=== PATIENT | female | born 1985 | race Caucasian/White ===

== ENCOUNTER 2016-07-17 18:33 | Inpatient (IN) | payer BC, OTHER ==
[2016-07-17] MEDS ORDERED: MORPHINE SULFATE 2 MG/ML SYRINGE ONE (19:23)
[2016-07-17] MEDS ORDERED: MORPHINE SULFATE 4 MG/ML SYRINGE ONE (19:23)
[2016-07-17] MEDS ORDERED: LACTATED RINGERS 1,000 ML ONE (19:23)
[2016-07-17] MEDS ORDERED: PROCHLORPERAZINE 5 MG/ML 2 ML VIAL ONE (19:32)
[2016-07-17 19:51] LABS: ABSOLUTE NEUTROPHIL COUNT 15.7 K/mm3 (1.8-7.7); BASO # 0.1 K/mm3 (0.0-0.2); BASO % 0.3 % (0.2-1.0); EOS % 0.1 % (0.9-2.9); HEMATOCRIT 34.8 % (37.0-47.0); HEMOGLOBIN 11.8 gm/l (12.0-16.0); IMM NEUT # 0.1 K/mm3 (0-0.2); IMM NEUT% 0.5 % (0-1); INR 0.94; LYMPH # 1.3 (1.0-4.8); LYMPH % 7.2 % (15-45); MEAN CORPUSCULAR HEMOGLOBIN 33.2 pg (27.0-31.0); MEAN CORPUSCULAR HGB CONC 33.9 g/dl (33.0-37.0); MEAN PLATELET VOLUME 10.3 fl (7.4-10.4); MONO # 0.6 (0.0-0.8); MONO % 3.3 % (4-12); NEUT % 88.6 % (43-75); PLATELET COUNT 314 K/mm3 (130-400); PROTHROMBIN TIME 9.9 SECONDS (9.3-11.4); RED CELL DISTRIBUTION WIDTH 12.3 % (11.5-14.5)
[2016-07-17 19:53] LABS: ALBUMIN 3.3 gm/dL (3.5-5.7); CALCIUM 9.2 mg/dL (8.6-10.3)
--- NOTE | 2016-07-17 20:55 | US ---
Name: MEDARDO CLAYTON Exam: Limited obstetrical ultrasound Comparison: None Clinical history: Intrauterine gestation approximately 19 weeks 4 days. Intermittent bleeding and pain. Findings: There is a single living intrauterine gestation in a breech presentation. Heart rate is 189 bpm. The cervix is quite shortened at 8 mm. Oligohydramnios is identified with a four-quadrant index of under 1 cm. There is a fundal placenta without current evidence for abruption. Impression: 1. Single living intrauterine gestation in breech position 2. Oligohydramnios. 4 quadrant index is under 1 cm 3. Very short cervix at 8 mm 4. No current evidence for abruption of the fundal placenta Note: Findings were discussed with Dr. Miriam Silva at 2051 hours .
[2016-07-17 21:24] LABS: URINE BILIRUBIN NEGATIVE (NEGATIVE); URINE BLOOD 4+ (NEGATIVE); URINE GLUCOSE (UA) NEGATIVE (NEGATIVE); URINE LEUKOCYTE ESTERASE 1+ (NEGATIVE); URINE NITRITE NEGATIVE (NEGATIVE); URINE PROTEIN 1+ (NEGATIVE); URINE UROBILINOGEN NORMAL (0-1 mg/dl)
[2016-07-17 21:50] LABS: URINE APPEARANCE CLOUDY; URINE COLOR DARK YELLOW
[2016-07-17 21:51] LABS: URINE BACTERIA RARE; URINE EPITHELIAL CELLS 0-2 /hpf; URINE RBC >100 /hpf
[2016-07-17] MEDS ORDERED: BLISTEX LIPSTICK 1 EACH TP PRN (22:55)
[2016-07-17] MEDS ORDERED: MAGNESIUM HYDROXIDE/AL HYDROX 30 ML UDCUP PO PRN (22:55)
[2016-07-17] MEDS ORDERED: MAG HYDROX/AL HYDROX/SIMETH 30 ML UDCUP PO PRN (22:55)
[2016-07-17] MEDS ORDERED: HYDROMORPHONE HCL 1 MG/ML SYRINGE IV PRN (22:55)
[2016-07-17] MEDS ORDERED: DOCUSATE SODIUM 100 MG CAPSULE PO PRN (22:55)
[2016-07-17] MEDS ORDERED: MENTHOL/CETYLPYRD 1 EACH LOZENGE PO PRN (22:55)
[2016-07-17] MEDS ORDERED: METHYLERGONOVINE MALEATE 0.2 MG/ML 1ML AMP ONE (22:56)
[2016-07-17] MEDS ORDERED: PUMP TUBING ONE (23:05)
[2016-07-17] MEDS: D5LR 1,000 ML IV SCH (23:14)
[2016-07-17] MEDS: PIPERACILLIN-TAZO PREMIX BAG 3.375 G in Premix (D5W) 50 ml 1 EACH IV SCH (23:43)
[2016-07-18] MEDS: D5LR 1,000 ML IV SCH ×3 (06:24→23:23)
[2016-07-18 07:18] LABS: HEMATOCRIT 28.6 % (37.0-47.0); HEMOGLOBIN 9.7 gm/l (12.0-16.0); MEAN CELL VOLUME 96.9 fl (81.0-99.0); MEAN CORPUSCULAR HEMOGLOBIN 32.9 pg (27.0-31.0); MEAN CORPUSCULAR HGB CONC 33.9 g/dl (33.0-37.0); RED CELL DISTRIBUTION WIDTH 12.4 % (11.5-14.5)
[2016-07-18] MEDS: PIPERACILLIN-TAZO PREMIX BAG 3.375 G in Premix (D5W) 50 ml 1 EACH IV SCH ×3 (07:36→23:52)
--- NOTE | 2016-07-18 09:53 | HP ---
Shy Reddy [id number] DATE OF ADMISSION: 07/17/2016 ADMISSION DIAGNOSES: 1. Nineteen weeks . 2. Oligohydramnios. HISTORY AND PHYSICAL: The patient is a 31-year-old 3, para 1-0-1-1 with estimated delivery date of 12/07/2016. The patient presents at 19 weeks plus 4 days to the emergency room with complaints of vaginal bleeding. The patient had initiated care with [facility] and was seen there for two visits. The patient states that she had been having vaginal bleeding since the first trimester. Subsequently, patient transferred to Dr. Yanez at 17-1/2 weeks. At that time, patient was given a prescription for Metrogel for bacterial vaginosis. The patient subsequently continued to have vaginal bleeding on and off as well as pelvic cramping which increased since this week and last evening. The patient came to the emergency room and ultrasound was performed, this showed a single living intrauterine gestation in breech presentation. The heart rate was 189. The cervix was 8 mm and there was oligohydramnios with amniotic fluid of under 1 cm in four quadrants. There was a fundal placenta without any evidence for abruption. The patient has had gonorrhea and Chlamydia screening approximately one week ago which was negative. She had a Pap smear that was also negative. Of note, she is RH negative and had an early Rhogam shot due to vaginal bleeding. PAST OBSTETRICAL HISTORY: Patient has had a delivery for failure to dilate and distress in 2010. This was followed by a 13 week spontaneous in 2016. There was no dilation and curettage needed. PAST MEDICAL HISTORY: Negative. PAST SURGICAL HISTORY: Otherwise negative. ALLERGIES: No known drug allergies. PHYSICAL EXAMINATION: GENERAL: The patient is alert and appropriate. The patient will have moderate distress intermittently with intermittent abdominal pain. HEART: Regular rate and rhythm. LUNGS: Clear to auscultation bilaterally. ABDOMEN: Gravid and consistent with 19 week gestation. The abdomen is nondistended. The uterus is mildly tender with no rebound or guarding. PELVIC: Cervix is closed. There was some mild vaginal bleeding that also appeared intermittent. EXTREMITIES: Normal. ASSESSMENT AND PLAN: This is a 31-year-old 3, para 1 at 19 weeks of gestation with oligohydramnios. Differential diagnoses include and premature rupture of membranes, intrauterine infection or malformation or placental abruption. The patient states that she has been afebrile, however, with intermittent low grade temperatures of 99 as well as leukocytosis upon admission of 17.7. The patient's hemoglobin is 11.8 and she is stable at this time. We will admit the patient for observation and start Zosyn for antibiotics for treatment of possible intrauterine infection. The patient will also be started on Dilaudid for pain control. I have discussed the plan and prognosis with the patient with regards to early second trimester oligohydramnios. Overall prognosis is poor. The patient will be observed at this time and we will watch for whether she will start to dilate. JOB: [id number]
[2016-07-18] MEDS: ACETAMINOPHEN 325 MG TABLET PO PRN ×2 (14:50→21:12)
[2016-07-18 15:27] VITALS: BMI 27.4
--- NOTE | 2016-07-18 17:17 | PDOC36 ---
Provider Note Note: ob note: dr ackerman at [facility] was consulted regarding patient's status. she suggested ultrasound to be performed at [facility] and mfm consult at time of ultrasound. i discussed this with patient and partner. detailed discussion on oligohydramnios findings and shortened cervix on ultrasound at [facility]. risk of miscarriage discussed, possible genetic factors discussed, possible history of premature rupture of membranes discussed (patient does not give any history of prom), severe prematurity and sequelae discussed should patient carry to 23-24 weeks, neurological sequelae, lung, cardiac and infection sequelae discussed in general terms, that i could not offer a more detailed outcome as outcomes vary from patient to patient, but mfm consult tomorrow could provide more details. midtrimester still likely, but patient having less bleeding with bed rest. plan: start regular diet, continue bed rest, cancel ultrasound, but keep scheduled ultrasound and mfm consult at time of ultrasound at [facility] with mfm, dr. radha ackerman, continue iv fluids and antibiotics. above discussion lasted over 20 minutes, with patient and partner present. all questions were addressed.
--- NOTE | 2016-07-18 17:17 | PDOC36 ---
Provider Note Note: ob note: patient admitted by dr xiong last evening with history of vaginal bleeding and cramps with intrauterine at 19 weeks. ultrasound showed oligohydramnios, positive cardiac activity, no evidence of abruptio placentae, and shortened cervix. s-comfortable this morning, minimal cramps, bleeding has almost stopped o-vital signs stable, afebrile a- female, no acute distress, abdomen benign, uterine fundus at 19 weeks and nontender, minimal dark brown vaginal discharge on pad p-continue antibiotics, bed rest but may use bathroom, anatomy ultrasound for . i discussed ultrasound findings with patient and risk of miscarriage because of shortened cervix and oligohydramnios. should advance to 23- 24 weeks, i discussed consultation and transfer to maternal medicine practice and/or [facility] or [facility] in [place] should premature onset of labor occur.
[2016-07-19] MEDS: ONDANSETRON 4 MG/2ML 2 ML VIAL IV PRN ×2 (07:15→11:49)
[2016-07-19] MEDS: PIPERACILLIN-TAZO PREMIX BAG 3.375 G in Premix (D5W) 50 ml 1 EACH IV SCH ×2 (07:15→15:29)
[2016-07-19] MEDS: D5LR 1,000 ML IV SCH (07:22)
--- NOTE | 2016-07-19 10:03 | PDOC36 ---
Provider Note Note: ob note: patient had onset of contractions early this morning associated with passage of watery blood approximately 20cc seen in bathroom. following this, umbilical cord and foot noted at vaginal opening, with parts noted in vagina. gentle traction performed on foot and leg to attempt delivery of fetus, but i was unable to deliver fetus. patient having regular uterine contractions, no active bleeding. plan is for nonintervention to allow fetus and placenta to deliver spontaneously. discussed sending fetus and placenta for genetic studies and pathology, which patient and partner would like done, once the fetus delivers. patient requesting clergy after delivery. imp: midtrimester in progress plan: as above
--- NOTE | 2016-07-19 10:19 | PDOC36 ---
Provider Note Note: ob note: body of fetus delivered past vaginal opening. will await spontaneous delivery of entire fetus and placenta. no active bleeding.
[2016-07-19] MEDS ORDERED: OXYTOCIN IN LR 500 ML IV PRN (10:39)
--- NOTE | 2016-07-19 10:42 | PDOC36 ---
Provider Note Note: ob note: patient delivered fetus intact, well formed male fetus. cord attached. pitocin ordered for management of delivery of placenta.
[2016-07-19] MEDS ORDERED: PUMP TUBING ONE ×2 (10:44→23:49)
--- NOTE | 2016-07-19 11:45 | PDOC36 ---
Provider Note Note: ob note: placenta undelivered. will observe over one more hour, and if undelivered, then removal under anesthesia, possible d&c. patient stable, no active bleeding, no fever. discussed options with patient and she is comfortable with waiting another hour and possibly avoiding d&c.
--- NOTE | 2016-07-19 12:42 | PDOC36 ---
Provider Note Note: ob note: patient had large gush of blood and formed blood clot 6cm. placenta still retained. discussed d&c, possible suction d&c and will proceed since it is over two hours since delivery of fetus. risks, reasons, complications, alternatives discussed, all questions addressed in simple terms. lungs clear, heart rsr, no murmur. informed consent signed. imp: retained placenta plan: as above.
[2016-07-19] MEDS ORDERED: LIDOCAINE 2% (PRES FREE) 5 ML VIAL ONE (12:49)
[2016-07-19] MEDS ORDERED: METOCLOPRAMIDE HCL 5 MG/ML 2ML VIAL ONE (12:49)
[2016-07-19] MEDS ORDERED: DEXAMETHASONE SOD PHOS 4 MG/1 ML VIAL ONE (12:49)
[2016-07-19] MEDS ORDERED: PROPOFOL 20 ML IV ONE (12:49)
[2016-07-19] MEDS ORDERED: MIDAZOLAM HCL 1 MG/ML 2ML VIAL ONE (12:49)
[2016-07-19] MEDS ORDERED: ONDANSETRON 4 MG/2ML 2 ML VIAL ONE (12:49)
[2016-07-19] MEDS ORDERED: SUCCINYLCHOLINE CHL 20 MG/ML DOSE ONE (12:49)
[2016-07-19] MEDS ORDERED: FENTANYL 100 MCG/2 ML VIAL ONE (12:49)
[2016-07-19] MEDS ORDERED: FENTANYL 100 MCG/2 ML VIAL IV PRN (13:42)
[2016-07-19] MEDS ORDERED: HYDROMORPHONE HCL 1 MG/ML SYRINGE IV PRN (13:42)
[2016-07-19] MEDS ORDERED: ATROPINE SULFATE 0.4 MG/1 ML VIAL IV PRN (13:42)
[2016-07-19] MEDS ORDERED: KETOROLAC TROMETHAMINE 30 MG/ML 1 ML VIAL IV ONE (13:42)
[2016-07-19] MEDS ORDERED: PROMETHAZINE HCL 25 MG/ML VIAL IM PRN (13:42)
[2016-07-19] MEDS ORDERED: ONDANSETRON 4 MG/2ML 2 ML VIAL IV PRN (13:42)
[2016-07-19] MEDS ORDERED: NALOXONE HCL 0.4 MG/ML VIAL IV PRN (13:42)
[2016-07-19] MEDS ORDERED: LACTATED RINGERS 1,000 ML IV SCH ×2 (13:45→14:45)
[2016-07-19] MEDS ORDERED: MAG HYDROX/AL HYDROX/SIMETH 30 ML UDCUP PO PRN (14:40)
[2016-07-19] MEDS ORDERED: MAGNESIUM HYDROXIDE/AL HYDROX 30 ML UDCUP PO PRN (14:40)
[2016-07-19] MEDS ORDERED: ACETAMINOPHEN 325 MG TABLET PO PRN (14:40)
[2016-07-19] MEDS ORDERED: MENTHOL/CETYLPYRD 1 EACH LOZENGE PO PRN (14:40)
[2016-07-19] MEDS ORDERED: BLISTEX LIPSTICK 1 EACH TP PRN (14:40)
[2016-07-19] MEDS ORDERED: OXYCODONE/ACETAMINOPHEN 5/325 MG TABLET PO PRN (14:40)
[2016-07-19] MEDS ORDERED: DOCUSATE SODIUM 100 MG CAPSULE PO PRN (14:40)
[2016-07-19] MEDS ORDERED: RHOGAM 300 MCG SYRINGE IM ONE (14:45)
[2016-07-19] MEDS ORDERED: PROMETHAZINE HCL 25 MG/ML VIAL ONE (14:46)
[2016-07-19 15:51] LABS: CHLAMYDIA BD Negative (Negative); N.GONORRHOEAE BD Negative (Negative); SOURCE Urine (())
[2016-07-19] MEDS: IBUPROFEN 800 MG TABLET PO SCH ×2 (16:34→22:24)
[2016-07-19 16:46] LABS: HEMATOCRIT 25.4 % (37.0-47.0); HEMOGLOBIN 8.7 gm/l (12.0-16.0)
--- NOTE | 2016-07-19 16:58 | PDOC36 ---
Provider Note Note: post op note: patient resting comfortably. no complaints. uterine fundus firm 12 weeks size, nontender. no bleeding noted on vaginal/uterine packing at vaginal opening. hb 8.7. imp: stable post op Plan: remove packing tomorrow.
[2016-07-19] MEDS: METHYLERGONOVINE MALEATE 0.2 MG TABLET PO SCH ×2 (17:34→21:06)
[2016-07-19] MEDS ORDERED: RHOGAM 300 MCG SYRINGE IV ONE (19:30)
[2016-07-19] MEDS ORDERED: SODIUM CHLORIDE 0.9% 1,000 ML ONE (23:50)
[2016-07-20] MEDS: PIPERACILLIN-TAZO PREMIX BAG 3.375 G in Premix (D5W) 50 ml 1 EACH IV SCH ×3 (00:34→16:31)
[2016-07-20] MEDS: IBUPROFEN 800 MG TABLET PO SCH (04:38)
[2016-07-20 07:05] LABS: HEMOGLOBIN 6.6 gm/l (12.0-16.0)
[2016-07-20 07:08] LABS: HEMATOCRIT 19.3 % (37.0-47.0)
[2016-07-20] MEDS: METHYLERGONOVINE MALEATE 0.2 MG TABLET PO SCH ×2 (07:27→14:57)
[2016-07-20] MEDS ORDERED: BLOOD Y PLUMSET W/CASSETTE ONE (08:19)
[2016-07-20] MEDS ORDERED: SODIUM CHLORIDE 0.9% 0 ML ONE (08:19)
[2016-07-20] MEDS ORDERED: IV START KIT ONE ×2 (11:02→16:28)
[2016-07-20] MEDS ORDERED: SODIUM CHLORIDE 0.9% FLUSH 10 ML ONE (11:02)
--- NOTE | 2016-07-20 12:09 | OP ---
ELAINE CLAYTON [id number] DATE OF : 1985 NAME OF OPERATION: UTERINE CURETTAGE, SUCTION CURETTAGE AND UTERINE PACKING. PREOPERATIVE DIAGNOSIS: Retained placenta following a mid-trimester . POSTOPERATIVE DIAGNOSIS: Retained placenta and placenta accreta. OPERAATOR: Dr. Valentin Yanez ANESTHESIA: Bertram Levine CRNA, general anesthesia. DESCRIPTION OF PROCEDURE: With the patient under general anesthesia, she was receiving IV Pitocin at the onset of the procedure. After a time-out was performed, the local area was prepared with betadine and draped in the usual manner and the bladder was drained of 20 mL of clear yellow urine. Exam under anesthesia revealed the external genitalia healthy, but covered with blood. The umbilical cord was dangling from the opening of the vagina. The vagina had approximately 100 mL of blood and clots, which were evacuated, and the cervix was dilated 2 cm. The uterus at the onset of the operation was 16 week size and the adnexa were negative. PROCEDURE: The umbilical cord was cut to remove the plastic cord clamp. Next, the cord was grasped with a ring forceps, hoping to remove the placenta intact this way, however, that could not be accomplished and the cord tore. Following this, a duckbill speculum was inserted into the vagina gently. The anterior lip of the cervix was grasped with a ring forceps. The uterus was sounded to 10 cm, and at the onset of the operation the uterus was 16 week size. Suction curettage was performed using a straight #12 suction curette, removing approximately 100 mL of blood and small pieces of placental tissue. Instrument curettage was performed. There was a gritty sensation over the anterior portion of the uterus, however, posteriorly it felt to be smooth, and suction curettage was repeated, however, just blood and minimal pieces of placental material were removed, which were inspected in the specimen. After this, a large ring forceps was inserted into the uterus gently and the placenta was removed piecemeal. It appeared to be very adherent. Finally, one large intact piece of placenta did come out, approximately 8 cm x 8 cm in greatest dimensions, and then additional pieces of placental material were removed after the larger piece was removed. A second large piece was removed approximately 3 cm in diameter. Sharp curettage was next performed and there was a gritty sensation over the posterior portion of the uterus as well, and then following this the suction curettage was again performed, with no additional tissue removed. The uterus was massaged vigorously because the patient was actively bleeding, and she was also given methergine at this time. The vagina was packed with 4 x 4's and approximately five minutes time elapsed before removing them, and there was just minimal trickling of blood at this point. Because of this, I decided to pack the uterus with 1 inch iodoform gauze. A portion of the iodoform packing was placed in the uterus and in the cervix, and the rest remaining in the vagina. This will be removed either later today or tomorrow morning. All the vaginal instruments were removed, and with the exception of the minimal trickling of blood, there was no active bleeding noted. After the procedure the uterus was ten week size, firm and anteverted. At this time the operation was terminated after all the sponges were reported as correct and all the instruments were accounted for. The estimated blood loss of the procedure was 500 mL. The patient tolerated the procedure well and was returned to the recovery room in stable condition, with the uterine packing in place. FINAL DIAGNOSIS: Retained placenta and placenta accreta.
--- NOTE | 2016-07-20 12:56 | PDOC39B ---
Hospital Course: ADMIT DATE: 07/17/16 DISCHARGE DATE: 07/20/16 ADMISSION DIAGNOSES: intrauterine at 19 weeks, oligohydramnios, vaginal bleeding, cervical effacement PROCEDURES: antibiotic therapy, bed rest, delivery of stillborn fetus, dilatation and curettage, suction curettage, uterine packing HISTORY OF PRESENT ILLNESS: 31 year old [facility] at 19 weeks gestation presenting with vaginal bleeding, uterine cramps and oligohydramnios on ultrasound HOSPITAL COURSE: The patient went into premature labor and delivered an intact stillborn fetus on 07/19/16, followed by a retained placenta, placenta accreta requiring removal under anesthesia by uterine curettage, suction curettage, then uterine packing and tolerated the procedure well. On post operative day one the packing was removed. She received 2 units packed cells for post operative anemia. By day of discharge the patient is ambulating, eating, voiding, and passing flatus without difficulty. Pain is controlled and lochia is appropriate. - Physical Exam Vital Signs: Temp Pulse Resp BP Pulse Ox 98.4 F 90 18 109/60 98 07/20/16 12:41 07/20/16 12:41 07/20/16 12:41 07/20/16 12:41 07/20/16 12:41 General: Afebrile, No Acute Distress Psych/Mental Status: Mood/Affect Appropriate, Judgment/Insight Intact Lungs: Clear to Auscultation Bilaterally, Normal Air Movement Fundus: Firm, Midline, Other (nontender and 10 weeks size) Genitourinary: Normal Female Genitalia, Other (vaginal and uterine packing ( iodoform) removed intact. no excessive bleeding noted at time of removal) Lochia: Light Extremities: No Tenderness Other Findings: patient receiving 2 units packed cells for post operative anemia secondary to acute blood loss - Discharge Diagnosis (1) Second trimester Status: Resolved (2) Retained placenta Status: Resolved (3) Placenta accreta in second trimester Status: Resolved (4) Postoperative anemia due to acute blood loss Status: Resolved (5) Oligohydramnios in second trimester Status: Acute (6) Hemorrhage, antepartum, second trimester Status: Inactive (7) Cervical abnormality in , delivered with condition Status: Inactive - Discharge Plan Condition: Stable Disposition: Home
[2016-07-20] MEDS ORDERED: LACTATED RINGERS 1,000 ML ONE (16:28)
[2016-07-20] MEDS ORDERED: PUMP TUBING ONE (16:28)
[2016-07-20 16:41] LABS: ABSOLUTE NEUTROPHIL COUNT 4.5 K/mm3 (1.8-7.7); BASO # 0.1 K/mm3 (0.0-0.2); BASO % 0.7 % (0.2-1.0); EOS # 0.1 (0.0-0.5); HEMATOCRIT 26.5 % (37.0-47.0); HEMOGLOBIN 9.1 gm/l (12.0-16.0); IMM NEUT% 0.6 % (0-1); LYMPH # 2.2 (1.0-4.8); LYMPH % 30.1 % (15-45); MEAN CELL VOLUME 93.6 fl (81.0-99.0); MEAN CORPUSCULAR HEMOGLOBIN 32.2 pg (27.0-31.0); MEAN CORPUSCULAR HGB CONC 34.3 g/dl (33.0-37.0); MEAN PLATELET VOLUME 10.1 fl (7.4-10.4); MONO # 0.3 (0.0-0.8); MONO % 4.5 % (4-12); NEUT % 63.1 % (43-75); PLATELET COUNT 232 K/mm3 (130-400); RED CELL DISTRIBUTION WIDTH 14.2 % (11.5-14.5)
[2016-07-20 17:09] VITALS: BP 111/55
--- NOTE | 2016-07-24 16:00 | SURGPATH ---
[facility] [address] [place] [address] Patient Name: ELAINE CLAYTON MR#: [id number] : 1985 Gender: F Specimen #: [id number] Collected: 07/19/2016 Received: 07/22/2016 Reported: 07/23/2016 Submitting Phys: EMI BUI I Copy To Phys: [facility] Addendum Present Clinical History / Pre-Operative Diagnosis: 19.5 week demise Specimen Source / Surgical Procedure Performed: male fetus Interpretation: 1. FETUS, DELIVERY: - MALE FETUS, 293 G, FOOT LENGTH 3.3 CM,CROWN TO RUMP LENGTH 16.5 CM, CROWN TO HEEL LENGTH 23 CM, CONSISTENT WITH GESTATIONAL AGE OF 19-20 WEEKS - THREE VESSEL UMBILICAL CORD 2. PLACENTA, DELIVERY: - FRAGMENTED PLACENTA - MEMBRANES WITH ACUTE INFLAMMATION -TROPHOBLASTIC MATURATION CONSISTENT WITH THAT OF THE SECOND TRIMESTER - SEE COMMENT Comment: The inflammation in the membranes may be secondary to the demise. Clincal correlation is recommended. tissue was sent for cytogenetic testing, with a supplemental report to follow. Electronically Signed Out Adela Cullen M.D. Addendum Date Reported: 08/14/2016 Signed Out Addendum Diagnosis CASE SENT FOR ADDITIONAL TESTING CHROMOSOME ANALYSIS: 46,XY NORMAL MALE KARYOTYPE Performed by: [employer] [place] [address] Please see complete report under separate cover. Complete report on file. slc08/14/2016 Electronically Signed Out Nneka Garcia M.D. Gross Description: The specimen is received fresh labeled with the patient's name. The specimen consists of a 293 g male fetus with an attached 13 cm length of umbilical cord. The fetus is 16.5 cm from crown to rump, 23 cm from crown to heel. The umbilical cord is not coiled and appears to have three vessels. The skin is translucent pink-red. The facial features appear normal. The nares are patent. The mouth is normal. The eyes are closed. The ears are normally set. The hands and fingers are normal. The external male genitalia is normal. The feet and toes are normal. The foot length is 3.3 cm consistent with a gestational age of 19-20 weeks. The internal organs appear normally sized and normally situated. The liver is 19 g. The lobulated kidneys are 2.5 g. The 2.3 g heart appears normal. The testes are in a pelvic cavity. Bilateral tissue from the heels was taken for cytogenetic testing. 1A umbilical cord, liver, lung, heart, kidney, testis 2. The specimen is received in formalin labeled with the patient's name and "placenta". The specimen consists of a 290 g, 15 x 15 x 5 cm aggregate of placental fragments and clotted blood. There is a torn 15 cm umbilical cord segment (without coiling with three vessels). Placental orientation cannot be determined. There is abundant attached and detached clotted blood. Membranes are difficult to identify. 2A-D. rental representative [place], [place] Microscopic Description: Part 1: Sections of the kidney, lung, heart and liver are examined. 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 No viral cytopathic effect is seen. No significant pathologic changes are seen. The umbilical cord shows three vessels without funisitis. Part 2: Sections of membranes show acute inflammation within the membranes. No acute villitis is seen. Hemorrhage is present. 1: 53050 2: 75997 O36.4XX0 O43.92
== END 2016-07-20 17:37 | disposition home or self-care (01) | DRG 770 ==
LOC: ED 18:33 → SUPCPDRO 18:33 → MS 22:00 → OBSVTOIN 22:55 → FBC 07-19 08:31
PROVIDERS: ADMIT Obstetrics & Gynecology; ATTEND Obstetrics & Gynecology
PROC: 10A07ZZ Abortion of Products of Conception, Via Natural or Artificial Opening (ICD-10-PCS; principal; 2016-07-19)
PROC: 30233N1 Transfusion of Nonautologous Red Blood Cells into Peripheral Vein, Percutaneous Approach (ICD-10-PCS; 2016-07-19)
DX: O02.1 Missed abortion (principal); O60.12X0 Preterm labor second trimester with preterm delivery second trimester, not applicable or unspecified; O41.02X0 Oligohydramnios, second trimester, not applicable or unspecified; D62 Acute posthemorrhagic anemia; O99.02 Anemia complicating childbirth; O73.1 Retained portions of placenta and membranes, without hemorrhage; O34.211 Maternal care for low transverse scar from previous cesarean delivery; Z3A.19 19 weeks gestation of pregnancy; Z37.1 Single stillbirth

== ENCOUNTER 2016-07-25 11:00 | Emergency (ER) | payer OTHER ==
--- NOTE | 2016-07-25 12:58 | US ---
DUPLX SCAN VEIN EXT UNI RT COMPARISON: None. HISTORY: Right calf pain for 2 days. Technique: The veins of the right lower extremity were interrogated with real-time grayscale ultrasound, color Doppler, and spectral Doppler. Vessel compressibility and flow augmentation were assessed. FINDINGS: Deep venous thrombosis: None. Common femoral vein: Normal Greater saphenous vein confluence: Normal Deep femoral vein: Normal Proximal femoral vein: Normal Mid to distal femoral vein: Normal Popliteal vein: Normal Posterior tibial veins: Normal Peroneal veins: Normal Lymphadenopathy: None IMPRESSION: Normal study. No evidence of deep venous thrombosis of the right lower extremity. Report was sent to the emergency department [facility] medical record system 07/25/2016 at 13:00
== END 2016-07-25 12:57 | disposition home or self-care (01) ==
LOC: ED 11:00
DX: O90.9 Complication of the puerperium, unspecified (principal); M79.661 Pain in right lower leg